=== PATIENT | male | born 1995 | race American Indian/Alaskan Native ===

== ENCOUNTER 2021-02-28 11:47 | Emergency (ER) | payer SELFPAY ==
--- NOTE | 2021-02-28 15:44 | Emergency Department Report ---
ED Abdominal Pain HPI - General Chief Complaint: Abdominal Pain Stated Complaint: FAINTED,PAIN LO STOMACH Time Seen by Provider: 02/28/21 15:33 Source: patient Mode of arrival: Ambulatory Limitations: No Limitations - History of Present Illness Initial Comments: Patient is a 25-year-old male presents emergency room complaints of left lower quadrant abdominal pain that began this morning. He has associated diarrhea and dysuria. Patient reports that he had a brief 1 second episode of loss of consciousness while he was in the bathroom this morning. He denies hitting his head or any other injury. He denies any vision changes, numbness, weakness, bowel or bladder incontinence. Patient denies any vomiting, hematochezia, melena, hematemesis, pain or swelling the testicles. He has not been vaccinated for COVID-19. He states he is sexually active with men but reports that he was tested for STDs at the end of January and states that it was negative. He denies any past medical history. No allergies to medications. He endorses occasional alcohol and marijuana use. - Related Data Previous Rx's Medication Instructions Recorded Last Taken Type Doxycycline Hyclate [Doxycycline 100 mg PO BID 7 Days #14 tab 02/28/21 Unknown Rx Hyclate TAB] Allergies Allergy/AdvReac Type Severity Reaction Status Date / Time No Known Allergies Allergy Verified 02/28/21 15:58 ED Review of Systems ROS: Stated complaint: FAINTED,PAIN LO STOMACH Other details as noted in HPI Comment: All other systems reviewed and negative ED Past Medical Hx - Past Medical History Previous Medical History?: No - Surgical History Past Surgical History?: No - Social History Smoking Status: Unknown if ever smoked - Medications Home Medications: Home Medications Medication Instructions Recorded Confirmed Last Taken Type Doxycycline Hyclate [Doxycycline 100 mg PO BID 7 Days #14 tab 02/28/21 Unknown Rx Hyclate TAB] ED Physical Exam - General Limitations: No Limitations General appearance: alert, in no apparent distress - Head Head exam: Present: atraumatic, normocephalic - Eye Eye exam: Present: normal appearance - ENT ENT exam: Present: mucous membranes moist - Respiratory Respiratory exam: Present: normal lung sounds bilaterally. Absent: respiratory distress, wheezes, rales, rhonchi, stridor, chest wall tenderness, accessory muscle use, decreased breath sounds, prolonged expiratory - Cardiovascular Cardiovascular Exam: Present: regular rate, normal rhythm, normal heart sounds. Absent: systolic murmur, diastolic murmur, rubs, gallop - GI/Abdominal GI/Abdominal exam: Present: soft, tenderness (LLQ), normal bowel sounds. Absent: distended, guarding, rebound, rigid - Neurological Exam Neurological exam: Present: alert, oriented X3, CN II-XII intact, normal gait. Absent: motor sensory deficit - Psychiatric Psychiatric exam: Present: normal affect, normal mood - Skin Skin exam: Present: warm, dry, intact ED Course Vital Signs 02/28/21 02/28/21 14:41 18:55 Temperature 98.9 F Pulse Rate 89 80 Respiratory 18 Rate Blood Pressure 116/79 [Left] O2 Sat by Pulse 100 Oximetry ED Medical Decision Making - Lab Data Result diagrams: 02/28/21 15:42 02/28/21 15:42 Lab Results 02/28/21 02/28/21 02/28/21 Range/Units 15:42 15:42 Unknown WBC 2.6 L (4.5-11.0) K/mm3 RBC 5.30 H (3.65-5.03) M/mm3 Hgb 16.1 H (11.8-15.2) gm/dl Hct 47.3 H (35.5-45.6) % MCV 89 (84-94) fl MCH 31 (28-32) pg MCHC 34 (32-34) % RDW 14.1 (13.2-15.2) % Plt Count 160 (140-440) K/mm3 Lymph % (Auto) 38.2 H (13.4-35.0) % [place] % (Auto) 7.3 (0.0-7.3) % Eos % (Auto) 0.0 (0.0-4.3) % Baso % (Auto) 0.6 (0.0-1.8) % Lymph # (Auto) 1.0 L (1.2-5.4) K/mm3 [place] # (Auto) 0.2 (0.0-0.8) K/mm3 Eos # (Auto) 0.0 (0.0-0.4) K/mm3 Baso # (Auto) 0.0 (0.0-0.1) K/mm3 Seg Neutrophils % 53.9 (40.0-70.0) % Seg Neutrophils # 1.4 L (1.8-7.7) K/mm3 Sodium 138 (137-145) mmol/L Potassium 3.9 (3.6-5.0) mmol/L Chloride 97.4 L (98-107) mmol/L Carbon Dioxide 28 (22-30) mmol/L Anion Gap 17 mmol/L BUN 9 (9-20) mg/dL Creatinine 1.1 (0.8-1.3) mg/dL Estimated GFR > 60 ml/min BUN/Creatinine Ratio 8 % Glucose 92 (75-100) mg/dL Calcium 8.5 (8.4-10.2) mg/dL Total Bilirubin 0.40 (0.1-1.2) mg/dL AST 44 H (5-40) units/L ALT 16 (7-56) units/L Alkaline Phosphatase 72 (35-129) units/L Total Protein 8.0 (6.3-8.2) g/dL Albumin 4.4 (3.9-5) g/dL Albumin/Globulin Ratio 1.2 % Lipase 46 (13-60) units/L Urine Color Romi (Yellow) Urine Turbidity Clear (Clear) Urine pH 6.0 (5.0-7.0) Ur Specific [place] 1.026 (1.003-1.030) Urine Protein 100 mg/dl (Negative) mg/dL Urine Glucose (UA) Neg (Negative) mg/dL Urine Ketones 80 (Negative) mg/dL Urine Blood Neg (Negative) Urine Nitrite Neg (Negative) Urine Bilirubin Neg (Negative) Urine Urobilinogen 2.0 (<2.0) mg/dL Ur Leukocyte Esterase Neg (Negative) Urine WBC (Auto) 16.0 H (0.0-6.0) /HPF Urine RBC (Auto) 2.0 (0.0-6.0) /HPF U Epithel Cells (Auto) < 1.0 (0-13.0) /HPF Urine Bacteria (Auto) 1+ (Negative) /HPF Urine Mucus 2+ /HPF - EKG Data EKG shows normal: sinus rhythm, axis, intervals, QRS complexes, ST-T waves Rate: normal (100 bpm) - Radiology Data Radiology results: report reviewed Ordering Physician: LEELEE STALLINGS Date of Service: 02/28/21 Procedure(s): CT abdomen pelvis w con Accession Number(s): [id number] cc: LEELEE STALLINGS CT ABDOMEN AND PELVIS WITH CONTRAST HISTORY: LLQ abd pain, diarrhea COMPARISON: None TECHNIQUE: Routine abdominal and pelvic CT exam performed following intravenous contrast administration.. All CT scans at this location are performed using CT dose reduction for ALARA by tx ans of automated exposure control. FINDINGS: CT ABDOMEN: Lung Bases: No significant abnormality. Liver: No significant abnormality. Biliary: No significant abnormality. Spleen: No significant abnormality. Unenlarged. Pancreas: No significant abnormality. Adrenals: No significant abnormality. Kidneys: No significant abnormality. Lymphatics: No lymphadenopathy. Vasculature: No significant abnormality. Bowel/Peritoneum: No significant abnormality. No free air. No free fluid. Normal appendix. CT PELVIC: : No significant abnormality. Lymphatics: No lymphadenopathy. Osseous Structures: No aggressive appearing osseous lesions. Additional Findings: None IMPRESSION: 1. No significant abnormality. Signer Name: Romie Brown MD Signed: 02/28/2021 5:18 PM Workstation Name: [id number] Transcribed By: EMMIE Dictated By: Romie Brown MD Electronically Authenticated By: Romie Brown MD Signed Date/Time: 02/28/211717 DD/ 15 TD/TT: - Medical Decision Making Patient is a 25-year-old male presents emergency room complaints of left lower quadrant abdominal pain that began this morning. He has associated diarrhea and dysuria. Patient reports that he had a brief 1 second episode of loss of consciousness while he was in the bathroom this morning. He denies hitting his head or any other injury. He denies any vision changes, numbness, weakness, bowel or bladder incontinence. Patient denies any vomiting, hematochezia, melena, hematemesis, pain or swelling the testicles. He has not been vaccinated for COVID-19. He states he is sexually active with men but reports that he was tested for STDs at the end of January and states that it was negative. He denies any past medical history. No allergies to medications. He endorses occasional alcohol and marijuana use. Vitals are normal. On exam patient has left lower quadrant tenderness palpation, no guarding, no rebound, no rigidity, nor bowel sounds, no peritoneal signs. Labs are stable. UA shows 1+ bacteria and white blood cells present in the urine, could represent STD versus UTI. Patient given 1 g ceftriaxone and given prescription for doxycycline. CT abdomen pelvis with IV contrast 1. No significant abnormality. Discussed all results with patient answered questions. advised pt Please take medication as prescribed. Increase your water intake. Eat a bland liquid diet so advance her diet as tolerated. Follow-up with your primary care doctor for reexamination to have your urine retested for clearance of bacteria. Recommend for you to get outpatient full STD panel and to have any partner tested and treated as well. Avoid sexual intercourse. Return to emergency room for any new or worsening symptoms. Critical care attestation.: If time is entered above; I have spent that time in minutes in the direct care of this critically ill patient, excluding procedure time. ED Disposition Clinical Impression: Bacteria in urine Abdominal pain Qualifiers: Abdominal location: left lower quadrant Qualified Code(s): R10.32 - Left lower quadrant pain Diarrhea Qualifiers: Diarrhea type: unspecified type Qualified Code(s): R19.7 - Diarrhea, unspecified Disposition: 01 HOME / SELF CARE / HOMELESS Is pt being admited?: No Does the pt Need Aspirin: No Condition: Stable Instructions: Abdominal Pain, Adult, [id number], Diarrhea, Adult, [id number] Additional Instructions: Please take medication as prescribed. Increase your water intake. Eat a bland liquid diet so advance her diet as tolerated. Follow-up with your primary care doctor for reexamination to have your urine retested for clearance of bacteria. Recommend for you to get outpatient full STD panel and to have any partner tested and treated as well. Avoid sexual intercourse. Return to emergency room for any new or worsening symptoms. Prescriptions: Doxycycline Hyclate [Doxycycline Hyclate TAB] 100 mg PO BID 7 Days #14 tab Referrals: BARBARA FARRELL MD [Staff Physician] - 3-5 Days [facility] [Provider Group] - 3-5 Days Time of Disposition: 17:48 Print Language: TANZANIAN
[2021-02-28 16:09] LABS: Basophils % (Auto) 0.6 % (0.0-1.8); Hematocrit 47.3 % (35.5-45.6); Hemoglobin 16.1 gm/dl (11.8-15.2); Lymphocytes % (Auto) 38.2 % (13.4-35.0); Mean Corpuscular HGB Conc 34 % (32-34); Mean Corpuscular Volume 89 fl (84-94); Monocytes # (Auto) 0.2 K/mm3 (0.0-0.8); Monocytes % (Auto) 7.3 % (0.0-7.3); Platelet Count 160 K/mm3 (140-440); Red Cell Distribution Width 14.1 % (13.2-15.2)
[2021-02-28] MEDS ORDERED: SODIUM CHLORIDE 0.9% 1000 ML 1,000 ML IV ONE (16:15)
[2021-02-28 16:36] LABS: Alanine Aminotransferase 16 units/L (7-56); Albumin 4.4 g/dL (3.9-5); BUN/Creatinine Ratio 8; Blood Urea Nitrogen 9 mg/dL (9-20); Calcium 8.5 mg/dL (8.4-10.2); Hemolysis Index 19
[2021-02-28] MEDS ORDERED: HYOSCYAMINE SUBL 0.125 MG TAB SL ONE (17:00)
[2021-02-28] MEDS ORDERED: ONDANSETRON 4 MG/2 ML INJ IV ONE (17:00)
--- NOTE | 2021-02-28 17:22 | Cat Scan Report ---
CT ABDOMEN AND PELVIS WITH CONTRAST HISTORY: LLQ abd pain, diarrhea COMPARISON: None TECHNIQUE: Routine abdominal and pelvic CT exam performed following intravenous contrast administrat ion.. All CT scans at this location are performed using CT dose reduction for ALARA by means of autom ated exposure control. FINDINGS: CT ABDOMEN: Lung Bases: No significant abnormality. Liver: No significant abnormality. Biliary: No significant abnormality. Spleen: No significant abnormality. Unenlarged. Pancreas: No significant abnormality. Adrenals: No significant abnormality. Kidneys: No significant abnormality. Lymphatics: No lymphadenopathy. Vasculature: No significant abnormality. Bowel/Peritoneum: No significant abnormality. No free air. No free fluid. Normal appendix. CT PELVIC: : No significant abnormality. Lymphatics: No lymphadenopathy. Osseous Structures: No aggressive appearing osseous lesions. Additional Findings: None IMPRESSION: 1. No significant abnormality. Signer Name: Romie Brown MD Signed: 02/28/2021 5:18 PM Workstation Name: [id number]
[2021-02-28 17:45] LABS: Bacteria,Urine 1+ /HPF (Negative); Bilirubin,Urine NEG (Negative); Blood,Urine NEG (Negative); Color,Urine Amber (Yellow); Mucus,Urine 2+ /HPF
[2021-02-28] MEDS ORDERED: cefTRIAXone/NS 1 GM/50 ML 1 GM/50 ML BAG IV ONE (17:47)
[2021-02-28 18:55] VITALS: BP 116/79
--- NOTE | 2021-03-03 09:42 | Electrocardiograph Report ---
[facility] Test Date: 2021-02-28 Test Time: 16:53:15 Pat Name: TAMICA ORELLANA Department: Room: Gender: M Key Sander: JASIEL : 1995 Requested By: DELIO QUESADA Order Number: [id number] Reading MD: Paul ePrez Measurements Intervals [place] Rate: 100 P: 80 [place]: 151 QRS: 37 QRSD: 76 T: 15 QT: 320 QTc: 413 Interpretive Statements Sinus tachycardia No previous ECG available for comparison Electronically Signed On 03-03-2021 9:42:06 EDT by Paul Perez
== END 2021-02-28 18:56 | disposition home or self-care (01) ==
LOC: ED 11:47
DX: R10.32 Left lower quadrant pain (principal); R82.71 Bacteriuria; R19.7 Diarrhea, unspecified; Z79.899 Other long term (current) drug therapy
CPT/HCPCS: 36415; 74177; 80053; 81001; 83690; 85025; 87086; 93005; 96361; 96365; 96375; 99284; J2405; J7030; Q9967

== ENCOUNTER 2021-03-03 09:07 | Emergency (ER) | payer SELFPAY ==
[2021-03-03 09:43] VITALS: BP 123/81
--- NOTE | 2021-03-03 10:19 | Emergency Department Report ---
ED ENT HPI - General Chief complaint: Dental/Oral Stated complaint: LT SIDE OF JAW SWOLLEN Time Seen by Provider: 03/03/21 10:14 Source: patient Mode of arrival: Ambulatory Limitations: No Limitations - History of Present Illness Initial comments: Patient is a 25-year-old male presents emergency room with complaints of left lower dental pain that began yesterday. He states this morning he woke up and he had swelling present to the left lower face. He states that he had 2 episodes of vomiting. He denies any fever, difficulty swallowing, difficulty breathing, diarrhea, chills. No past medical history. No allergies to medications. - Related Data Previous Rx's Medication Instructions Recorded Last Taken Type Doxycycline Hyclate [Doxycycline 100 mg PO BID 7 Days #14 tab 02/28/21 Unknown Rx Hyclate TAB] Chlorhexidine Mouthwash [Peridex] 15 ml MM BID #1 bottle 03/03/21 Unknown Rx Naproxen 375 mg PO BID PRN #14 tablet 03/03/21 Unknown Rx Ondansetron [Zofran Odt] 4 mg PO Q8HR PRN #8 tab.rapdis 03/03/21 Unknown Rx Penicillin Vk [Veetids TAB] 500 mg PO QID 7 Days #56 tablet 03/03/21 Unknown Rx Allergies Allergy/AdvReac Type Severity Reaction Status Date / Time No Known Allergies Allergy Verified 02/28/21 15:58 ED Dental HPI - General Chief complaint: Dental/Oral Stated complaint: LT SIDE OF JAW SWOLLEN Time Seen by Provider: 03/03/21 10:14 Source: patient Mode of arrival: Ambulatory Limitations: No Limitations - Related Data Previous Rx's Medication Instructions Recorded Last Taken Type Doxycycline Hyclate [Doxycycline 100 mg PO BID 7 Days #14 tab 02/28/21 Unknown Rx Hyclate TAB] Chlorhexidine Mouthwash [Peridex] 15 ml MM BID #1 bottle 03/03/21 Unknown Rx Naproxen 375 mg PO BID PRN #14 tablet 03/03/21 Unknown Rx Ondansetron [Zofran Odt] 4 mg PO Q8HR PRN #8 tab.rapdis 03/03/21 Unknown Rx Penicillin Vk [Veetids TAB] 500 mg PO QID 7 Days #56 tablet 03/03/21 Unknown Rx Allergies Allergy/AdvReac Type Severity Reaction Status Date / Time No Known Allergies Allergy Verified 02/28/21 15:58 ED Review of Systems ROS: Stated complaint: LT SIDE OF JAW SWOLLEN Other details as noted in HPI Comment: All other systems reviewed and negative ED Past Medical Hx - Past Medical History Previous Medical History?: No - Surgical History Past Surgical History?: No - Social History Smoking Status: Unknown if ever smoked - Medications Home Medications: Home Medications Medication Instructions Recorded Confirmed Last Taken Type Doxycycline Hyclate [Doxycycline 100 mg PO BID 7 Days #14 tab 02/28/21 Unknown Rx Hyclate TAB] Chlorhexidine Mouthwash [Peridex] 15 ml MM BID #1 bottle 03/03/21 Unknown Rx Naproxen 375 mg PO BID PRN #14 tablet 03/03/21 Unknown Rx Ondansetron [Zofran Odt] 4 mg PO Q8HR PRN #8 tab.rapdis 03/03/21 Unknown Rx Penicillin Vk [Veetids TAB] 500 mg PO QID 7 Days #56 tablet 03/03/21 Unknown Rx ED Physical Exam - General Limitations: No Limitations General appearance: alert, in no apparent distress - Head Head exam: Present: atraumatic, normocephalic - Eye Eye exam: Present: normal appearance - ENT ENT exam: Present: mucous membranes moist, other (there is a cracked tooth present to the left lower molar, the adjacent gumline has a 2 cm area of edema, there is mild left facial edema, uvula is midline, no uvular edema or deviation, no trismus, no tongue elevation, no muffled voice, no submandibular edema) - Respiratory Respiratory exam: Absent: respiratory distress, accessory muscle use - Neurological Exam Neurological exam: Present: alert, oriented X3 - Psychiatric Psychiatric exam: Present: normal affect, normal mood - Skin Skin exam: Present: warm, dry, intact ED Course Vital Signs 03/03/21 09:41 Temperature 99.8 F H Pulse Rate 89 Respiratory 16 Rate Blood Pressure 123/81 O2 Sat by Pulse 99 Oximetry ED Medical Decision Making - Medical Decision Making Patient is a 25-year-old male presents emergency room with complaints of left lower dental pain that began yesterday. He states this morning he woke up and he had swelling present to the left lower face. He states that he had 2 episodes of vomiting. He denies any fever, difficulty swallowing, difficulty breathing, diarrhea, chills. No past medical history. No allergies to medications. Vitals with mild low-grade temperature, otherwise normal. On exam:there is a cracked tooth present to the left lower molar, the adjacent gumline has a 2 cm area of edema, there is mild left facial edema, uvula is midline, no uvular edema or deviation, no trismus, no tongue elevation, no muffled voice, no submandibular edema. Examination appears insistent with dental abscess, no signs of facial cellulitis, facial abscess, or Jasson's at this time. Patient given prescription for medication. Advised patient Please take medication as prescribed. Please follow-up with a dentist. it is very important that you follow-up. Return to emergency room for any new or worsening symptoms. Critical care attestation.: If time is entered above; I have spent that time in minutes in the direct care of this critically ill patient, excluding procedure time. ED Disposition Clinical Impression: Dental caries, Dental abscess Disposition: 01 HOME / SELF CARE / HOMELESS Is pt being admited?: No Does the pt Need Aspirin: No Condition: Stable Instructions: Dental Abscess Additional Instructions: Please take medication as prescribed. Please follow-up with a dentist. it is very important that you follow-up. Return to emergency room for any new or worsening symptoms. Prescriptions: Naproxen 375 mg PO BID PRN #14 tablet PRN Reason: pain Chlorhexidine Mouthwash [Peridex] 15 ml MM BID #1 bottle Penicillin Vk [Veetids TAB] 500 mg PO QID 7 Days #56 tablet Ondansetron [Zofran Odt] 4 mg PO Q8HR PRN #8 tab.rapdis PRN Reason: nausea/vomiting Referrals: PRIMARY CARE, [Primary Care Provider] - 3-5 Days [facility] [Outside] - 3-5 Days [facility] [Outside] - 3-5 Days Time of Disposition: 10:21 Print Language: K[place]
== END 2021-03-03 10:43 | disposition home or self-care (01) ==
LOC: ED 09:07
DX: K04.7 Periapical abscess without sinus (principal); K02.9 Dental caries, unspecified
CPT/HCPCS: 99282